=== PATIENT | female | born 1990 | race Caucasian/White ===

== ENCOUNTER 2017-02-14 22:04 | Emergency (ER) | payer OTHER ==
[~2017-02-14] VITALS: Ht 170.2 cm; Wt 105.5 kg
[~2017-02-14 22:04] MED LIST: FEXO1TAB45 PO; FLUO10CA48 PO; FLUT0.0529 INH; LORA-741 PO; MTR600X PO; OXYC-57 PO
[2017-02-14 22:09] VITALS: TEMP 36.8; Ht 170.2 cm; Wt 105.5 kg
--- NOTE | 2017-02-14 22:20 | EMERGENCY ROOM VISIT NOTE ---
ED Visit Note First contact with patient: 22:13 CHIEF COMPLAINT: knee pain HISTORY OF PRESENT ILLNESS: This 26-year-old female patient presents to the emergency department ambulatory complaining of pain in the left knee. The patient states that over the past few days, her left knee has "popped out" twice. She states that she has had a sharp pain in left knee and difficulty moving the knee. She does report a history of sciatica with radiation into the left leg but states this feels different. She denies any trauma to the knee. She denies previous issues with the left knee. She denies any numbness or weakness. She rates her discomfort an 8/10. REVIEW OF SYSTEMS: A 6 system review of systems was completed with positives and pertinent negatives listed in the HPI. ALLERGIES: No known drug allergies MEDICATIONS: See med list PMH: No concerning past medical history. SOCIAL HISTORY: The patient lives locally with family. PHYSICAL EXAM: Vital Signs: Reviewed Nurse's notes, vital signs stable. GENERAL : This is 26-year-old female, no acute distress, but appears in pain, well- developed, well-nourished. MENTAL STATUS: Alert, oriented to person place and time, and cooperative. MUSCULOSKELETAL: The left knee is not swollen. There is no ecchymosis. There is no joint effusion present. The patient is tender diffusely over the left knee. There is no joint line tenderness. The patella does not subluxate. Full flexion, decreased extension due to discomfort. Strength of the quads and hamstrings is 5/5. Joe's is negative. Miguel's and Anterior Drawer tests are negative. There is no laxity with varus and valgus stressing. The foot and toes are warm and well-perfused. Dorsalis pedis pulse 2+. Sensation to pain and light touch is intact. Capillary refill less than 2 seconds. RADIOGRAPHIC FINDINGS: LEFT KNEE 3 VIEWS CLINICAL HISTORY: Left knee pain and popping. COMPARISON: None FINDINGS: Alignment of the left knee is anatomic. No fracture or osseous lesion is identified. There is no evidence for a joint effusion although evaluation is slightly suboptimal given flexion of the left knee. Joint spaces are preserved. IMPRESSION: No abnormality of the left knee. EMERGENCY DEPARTMENT COURSE: I examined the patient. X-rays of the left knee were reviewed by myself and read by radiology and reveal no acute findings. The patient was placed in an Nicolas wrap under my direction and the position was satisfactory. The patient was instructed on the use of crutches. She was given an orthopedic referral. She verbalized understanding of my assessment and treatment plan. The patient was discharged home in good condition. DIAGNOSIS: Left knee pain Problem List Medical Problems: (1) HPV (human papilloma virus) infection Status: Resolved (2) Hyperlipidemia Status: Chronic Current/Historical Medications Scheduled Aripiprazole (Abilify), 5 MG PO DAILY Gabapentin (Neurontin), 600 MG PO TID Sertraline (Zoloft), 25 MG PO DAILY Trazodone Hcl (Trazodone), 50 MG PO HS Allergies Coded Allergies: No Known Allergies (Unverified , 05/21/14) Vital Signs Date Time Temp Pulse Resp B/P (MAP) Pulse Ox O2 Delivery O2 Flow Rate FiO2 02/14/17 22:09 36.8 74 18 134/82 98 Room Air Departure Information Impression Primary Impression: Left knee pain Dispostion Home / Self-Care Condition GOOD Referrals Eduin Prasad, DO Patient Instructions My [facility] Additional Instructions You have been treated in the Emergency Department for Knee Pain. For pain control, you can use the following [id number] medicines (if >12 yo): - Regular strength (325mg/tab) Tylenol (acetaminophen) 2 tabs every 4-6 hours as needed. Do not exceed 12 tablets in a 24 hour period. Avoid taking more than 4 grams (4000 mg) of Tylenol per day. This includes any other sources of acetaminophen you may take on a regular basis. - Regular strength (200 mg/tab) Advil (ibuprofen) 1-2 tabs every 4-6 hours as needed. Do not exceed a dose of 3200 mg per day. If this is a recent injury (<24 hrs), ice can be applied to the area of pain for the first 3 days to help decrease pain and inflammation. Ice massages can be performed by freezing water in a paper cup, peeling back the cup to expose the ice and then massaging over the affected area. You have been provided the number for an Orthopaedic Surgeon. You should call this number as soon as possible to establish a follow-up visit from today's Emergency Department visit. Wear the nicolas wrap and use the crutches you have been provided to keep ALL weight off of the knee until weight bearing is tolerable. Return to the Emergency Department if your current symptoms worsen despite treatment course outlined above. Problem Qualifiers Primary Impression: Left knee pain Chronicity: acute Qualified Codes: M25.562 - Pain in left knee
[2017-02-14] MEDS ORDERED: GABA-113 PO (22:46)
[2017-02-14] MEDS ORDERED: ABL/5 PO (22:47)
[2017-02-14] MEDS ORDERED: TRAZ50TA35 PO (22:48)
--- NOTE | 2017-02-14 22:48 | DIAGNOSTIC IMAGING REPORT ---
LEFT KNEE 3 VIEWS CLINICAL HISTORY: Left knee pain and popping. COMPARISON: None FINDINGS: Alignment of the left knee is anatomic. No fracture or osseous lesion is identified. There is no evidence for a joint effusion although evaluation is slightly suboptimal given flexion of the left knee. Joint spaces are preserved. IMPRESSION: No abnormality of the left knee. Electronically signed by: Constantino Ramos M.D. 02/14/2017 10:47 PM Dictated Date/Time: 02/14/2017 10:46 PM
[2017-02-14] MEDS ORDERED: SERT25TA PO (22:49)
[2017-02-14 23:17] VITALS: BP 128/78; PULSE 76; O2SAT 98
[2017-07-13] MEDS ORDERED: BUPR75TA20 PO (10:37)
[2017-07-13] MEDS ORDERED: TRAM-10 PO (15:01)
== END 2017-02-14 23:19 | disposition home or self-care (01) ==
LOC: C.EDB 22:05 → C.EDC 23:19
DX: M25.562 Pain in left knee (principal); Z86.19 Personal history of other infectious and parasitic diseases

== ENCOUNTER 2017-02-26 22:58 | Emergency (ER) | payer OTHER ==
[~2017-02-26] VITALS: Ht 160 cm; Wt 108.8 kg
[~2017-02-26 22:58] MED LIST changes: +ABL/5 PO; -FEXO1TAB45 PO; -FLUO10CA48 PO; -FLUT0.0529 INH; +GABA-113 PO; -LORA-741 PO; -MTR600X PO; -OXYC-57 PO; +SERT25TA PO; +TRAZ50TA35 PO
[2017-02-26 23:06] VITALS: TEMP 37.2; Ht 160 cm; Wt 108.8 kg
[2017-02-26] MEDS ORDERED: MoRPHine SULFATE 10 MG/ML CARP/VIAL IV STA (23:42)
[2017-02-27] MEDS ORDERED: ONDANSETRON INJ 2 MG/ML 2 ML VIAL IV STA (00:14)
[2017-02-27] MEDS ORDERED: ONDANSETRON INJ 2 MG/ML 2 ML VIAL ONE (00:15)
[2017-02-27] MEDS ORDERED: OPTIRAY 320 IV PRN (00:15)
[2017-02-27] MEDS ORDERED: HYDROmorphone INJ 2 MG/ML SYR/VIAL IV STA (00:24)
[2017-02-27 00:29] LABS: HEMATOCRIT 39.8 % (37-47); MEAN CELL VOLUME 90.9 fL (80-100); MEAN CORPUSCULAR HEMOGLOBIN 30.6 pg (25-34); MEAN CORPUSCULAR HGB CONC 33.7 g/dl (32-36); MEAN PLATELET VOLUME 9.8 fL (7.4-10.4); PLATELET COUNT 284 K/uL (130-400); RED BLOOD COUNT 4.38 M/uL (4.2-5.4); WHITE BLOOD COUNT 9.73 K/uL (4.8-10.8)
[2017-02-27 00:51] LABS: BUN/CREATININE RATIO 14.7 (10-20); CALCIUM 9.4 mg/dl (8.5-10.1); CREATININE 1.1 mg/dl (0.60-1.20); POTASSIUM 3.4 mmol/L (3.5-5.1)
[2017-02-27 01:07] LABS: PREG INTERNAL NEGATIVE QC NEG CLEAR BACKGROUND; PREG INTERNAL POSITIVE QC POS CONTROL LINE
[2017-02-27] MEDS ORDERED: PROCHLORPERAZINE 5 MG/ML 2 ML VIAL IV STA (01:33)
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
[2017-02-27 02:45] VITALS: BP 113/66; PULSE 98; O2SAT 93
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
[2017-07-13] MEDS ORDERED: BUPR75TA20 PO (10:37)
[2017-07-13] MEDS ORDERED: TRAM-10 PO (15:01)
== END 2017-02-27 02:46 | disposition home or self-care (01) ==
LOC: EDBD 22:58 → C.EDC 23:01 → C.EDB 02-27 02:46
DX: T14.8 Other injury of unspecified body region (principal); V43.62XA Car passenger injured in collision with other type car in traffic accident, initial encounter; M25.552 Pain in left hip; M54.5 Low back pain; M54.2 Cervicalgia; R51 Headache; E78.5 Hyperlipidemia, unspecified; Z86.19 Personal history of other infectious and parasitic diseases

== ENCOUNTER 2017-05-23 12:57 | Emergency (ER) | payer OTHER ==
[~2017-05-23] VITALS: Ht 170.2 cm; Wt 108.4 kg
[2017-05-23 13:02] VITALS: TEMP 36.6; Ht 170.2 cm; Wt 108.4 kg
[2017-05-23 13:24] VITALS: O2SAT 100
[2017-05-23] MEDS ORDERED: METHYLPREDNISOLONE 125 MG VIAL IV STA (13:31)
[2017-05-23] MEDS ORDERED: ONDANSETRON INJ 2 MG/ML 2 ML VIAL IV STA (13:31)
[2017-05-23] MEDS ORDERED: ALBUT/IPRATROP 3MG/0.5MG NEB 3 ML VIAL INH ONE (13:45)
[2017-05-23] MEDS ORDERED: SODIUM CHLORIDE 0.9% 1000ML 1,000 ML IV ONE (13:45)
--- NOTE | 2017-05-23 14:11 | DIAGNOSTIC IMAGING REPORT ---
CHEST 2 VIEWS ROUTINE CLINICAL HISTORY: Cough. Fever. COMPARISON STUDY: 02/27/2017 FINDINGS: The cardiac and mediastinal contours are normal. There is no evidence of focal pulmonary consolidation. There is no evidence of failure. No pleural effusions are visualized.[ IMPRESSION: No active disease in the chest. Electronically signed by: Josue Abebe M.D. 05/23/2017 2:10 PM Dictated Date/Time: 05/23/2017 2:09 PM
[2017-05-23 14:46] LABS: BASO % 0.2 %; BASO ABS # 0.02 K/uL (0-0.2); COMPLETE YES; EOS % 1.5 %; HEMATOCRIT 40.7 % (37-47); IG% 0.4 %; LYMPH % 16.4 %; LYMPH ABS # 1.49 K/uL (1.2-3.4); MEAN CELL VOLUME 89.1 fL (80-100); MEAN CORPUSCULAR HEMOGLOBIN 30.4 pg (25-34); MEAN CORPUSCULAR HGB CONC 34.2 g/dl (32-36); MEAN PLATELET VOLUME 10.4 fL (7.4-10.4); MONO % 6.3 %; NEUT % 75.2 %; PLATELET COUNT 279 K/uL (130-400); RED BLOOD COUNT 4.57 M/uL (4.2-5.4); WHITE BLOOD COUNT 9.09 K/uL (4.8-10.8)
[2017-05-23 15:03] LABS: ALB/GLOB RATIO 0.9 (0.9-2); ALKALINE PHOSPHATASE 85 U/L (45-117); ALT/SGPT 34 U/L (12-78); BLOOD UREA NITROGEN 10 mg/dl (7-18); BUN/CREATININE RATIO 12.6 (10-20); CALCIUM 9.1 mg/dl (8.5-10.1); CARBON DIOXIDE 22 mmol/L (21-32); CHLORIDE 106 mmol/L (98-107); CREATININE 0.79 mg/dl (0.60-1.20); GLUCOSE 89 mg/dl (70-99); SODIUM 139 mmol/L (136-145)
[2017-05-23] MEDS ORDERED: METH4PAK PO (15:17)
[2017-05-23 15:55] VITALS: BP 109/61; PULSE 88; O2SAT 97
--- NOTE | 2017-05-23 15:58 | EMERGENCY ROOM VISIT NOTE ---
History First contact with patient: 13:25 Chief Complaint: CHEST PAIN Stated Complaint: CHEST PAIN, TROUBLE BREATHING Nursing Triage Summary: patient with coughing yesterday and chest congestion before that. Chest tightness and pain started for 5 days ago also. coughing up brown mucus. Patient reports history of bronchitis. History of Present Illness The patient is a 26 year old female who presents to the Emergency Room with complaints of cough and chest congestion for the past 4 or 5 days. The patient has a history of bronchitis, and states this feels similar to previous episodes. She has not had a fever and has not taken anything [id number] for her symptoms. The patient recently moved to the area and has yet to establish with a primary care physician. She states that she got her insurance information today and is starting process tomorrow. The patient has not had significant fever or chest pain. No abdominal pain and she is not diabetic and rates her overall discomfort a 5/10. Review of Systems More than 10 systems were reviewed and otherwise negative with the exception of history of present illness. Past Medical/Surgical History Medical Problems: (1) HPV (human papilloma virus) infection (2) Hyperlipidemia (3) nonreassuring testing Family History FH: diabetes mellitus FH: heart failure FH: thyroid condition Social History Smoking Status: Current Every Day Smoker Alcohol Use: none Drug Use: none Marital Status: single Housing Status: lives with family Occupation Status: employed Current/Historical Medications Scheduled Gabapentin (Neurontin), 600 MG PO TID Methylprednisolone (Medrol Dosepak), 1 PKT PO DAILY Physical Exam Vital Signs Date Time Temp Pulse Resp B/P (MAP) Pulse Ox O2 Delivery O2 Flow Rate FiO2 05/23/17 13:30 100 Room Air 05/23/17 13:24 100 Room Air 05/23/17 13:19 69 05/23/17 13:02 36.6 100 22 130/80 97 Room Air Physical Exam VITALS: Vitals are noted on the nurse's note and reviewed by myself. Vital signs stable. GENERAL: Well-developed, well-nourished, white female, who is in no acute distress and resting comfortably. Patient is cooperative with the examination. EARS: External ear normal. External auditory canals clear, tympanic membranes pearly mendoza without erythema or effusion bilaterally. EYES: Pupils equal round and reactive to light and accommodation. Conjunctivae without injection, sclerae without icterus. Extraocular movements intact. NOSE: Patent, turbinates without inflammation or discharge. MOUTH: Mucous membranes moist. Tonsils are not enlarged. Pharynx without erythema, blood, or exudate. Uvula midline. Airway patent. NECK: Supple without nuchal rigidity. No lymphadenopathy. No thyromegaly. Cervical spine is nontender. HEART: Regular rate and rhythm without murmurs gallops or rubs. LUNGS: Coarse breath sounds with scattered rhonchi Medical Decision & Procedures ER Provider Diagnostic Interpretation: CHEST 2 VIEWS ROUTINE CLINICAL HISTORY: Cough. Fever. COMPARISON STUDY: 02/27/2017 FINDINGS: The cardiac and mediastinal contours are normal. There is no evidence of focal pulmonary consolidation. There is no evidence of failure. No pleural effusions are visualized.[ IMPRESSION: No active disease in the chest. Laboratory Results 05/23/17 13:31 Red Blood Count 4.57, Mean Corpuscular Volume 89.1, Mean Corpuscular Hemoglobin 30.4, Mean Corpuscular Hemoglobin Concent 34.2, Mean Platelet Volume 10.4, Neutrophils (%) (Auto) 75.2, Lymphocytes (%) (Auto) 16.4, Monocytes (%) (Auto) 6.3, Eosinophils (%) (Auto) 1.5, Basophils (%) (Auto) 0.2, Neutrophils # (Auto) 6.83, Lymphocytes # (Auto) 1.49, Monocytes # (Auto) 0.57, Eosinophils # (Auto) 0.14, Basophils # (Auto) 0.02 05/23/17 13:31 Test 05/23/17 13:31 05/23/17 13:36 White Blood Count 9.09 K/uL (4.8-10.8) Red Blood Count 4.57 M/uL (4.2-5.4) Hemoglobin 13.9 g/dL (12.0-16.0) Hematocrit 40.7 % (37-47) Mean Corpuscular Volume 89.1 fL (80-100) Mean Corpuscular Hemoglobin 30.4 pg (25-34) Mean Corpuscular Hemoglobin Concent 34.2 g/dl (32-36) Platelet Count 279 K/uL (130-400) Mean Platelet Volume 10.4 fL (7.4-10.4) Neutrophils (%) (Auto) 75.2 % Lymphocytes (%) (Auto) 16.4 % Monocytes (%) (Auto) 6.3 % Eosinophils (%) (Auto) 1.5 % Basophils (%) (Auto) 0.2 % Neutrophils # (Auto) 6.83 K/uL (1.4-6.5) Lymphocytes # (Auto) 1.49 K/uL (1.2-3.4) Monocytes # (Auto) 0.57 K/uL (0.11-0.59) Eosinophils # (Auto) 0.14 K/uL (0-0.5) Basophils # (Auto) 0.02 K/uL (0-0.2) RDW Standard Deviation 38.1 fL (36.4-46.3) RDW Coefficient of Variation 11.8 % (11.5-14.5) Immature Granulocyte % (Auto) 0.4 % Immature Granulocyte # (Auto) 0.04 K/uL (0.00-0.02) Anion Gap 11.0 mmol/L (3-11) Est Creatinine Clear Calc Drug Dose 135.6 ml/min Estimated GFR () 118.9 Estimated GFR (Non- 102.6 BUN/Creatinine Ratio 12.6 (10-20) Calcium Level 9.1 mg/dl (8.5-10.1) Total Bilirubin 0.5 mg/dl (0.2-1) Aspartate Amino Transf (AST/SGOT) U/L (15-37) Alanine Aminotransferase (ALT/SGPT) 34 U/L (12-78) Alkaline Phosphatase 85 U/L (45-117) Total Protein 8.0 gm/dl (6.4-8.2) Albumin 3.8 gm/dl (3.4-5.0) Globulin 4.2 gm/dl (2.5-4.0) Albumin/Globulin Ratio 0.9 (0.9-2) Bedside Troponin I < 0.030 ng/ml (0-0.045) Medications Administered Medications (Trade) Dose Ordered Sig/Burak Route Start Time Stop Time Status Last Admin Dose Admin Sodium Chloride 1,000 ml @ 999 mls/hr Q1H1M ONCE IV 05/23/17 13:45 05/23/17 14:45 DC 05/23/17 13:53 999 MLS/HR Methylprednisolone Sodium Succinate (Solu-Medrol IV) 125 mg NOW STAT IV 05/23/17 13:31 05/23/17 13:33 DC 05/23/17 13:40 125 MG Ondansetron HCl (Zofran Inj) 4 mg NOW STAT IV 05/23/17 13:31 05/23/17 13:33 DC 05/23/17 13:40 4 MG Albuterol/ Ipratropium (Duoneb) 3 ml NOW ONCE INH 05/23/17 13:45 05/23/17 13:46 DC 05/23/17 13:40 3 ML ECG Change: Normal sinus rhythm@ 69 bpm Normal ECG When compared with ECG of 21-AUG-2013 17:40, No significant change was found Confirmed by NELY RAHMAN ([id number]) on 05/23/2017 2:55:15 PM ED Course Physical exam and history were performed. Nursing notes, EMR, and Medication List were personally reviewed. Patient appears to have coughing and chest tightness for the past several days. She does have rhonchi on examination. EKG was performed and is as above without acute ST elevation or evidence of ischemia. Chest x-ray was performed. IV access was established and labs were obtained. The patient was hydrated and medicated as above. She was given a DuoNeb treatment. The patient does not have a significantly elevated white blood cell count or gross anemia, bandemia, or significant electrolyte imbalance. Chest x-ray does not show evidence of acute process. Reevaluation the patient lungs were much more clear and she felt much better. Clinically I suspect her symptoms are related to acute bronchitis. I discussed options of care with the patient, and evaluation does have inhalers at home. I will give her a Medrol Dosepak and asked her to establish and follow with primary care physician for further care and management. She was otherwise invited back to the ER with any new, worsening, or concerning symptoms. The chart was completed utilizing [employer] Speech Voice Recognition Software. Grammatical errors, random word insertions, pronoun errors, and incomplete sentences are an occasional consequence of this system due to software limitations, ambient noise, and hardware issues. Any formal questions or concerns about the content, text, or information contained within the body of this dictation should be directly addressed to the provider for clarification. . Medical Decision Differential diagnosis: Etiologies such as infections, reactive airway disease, pneumonia, pneumothorax , COPD, CHF, cardiac ischemia, pulmonary embolism, musculoskeletal, gastrointestinal, as well as others were entertained. Medication Reconcilliation Current Medication List: was personally reviewed by me Blood Pressure Screening Patient's blood pressure: Normal blood pressure Impression Primary Impression: Acute bronchitis Departure Information Dispostion Home / Self-Care Condition GOOD Prescriptions Methylprednisolone (MEDROL DOSEPAK) 4 Mg Jordan 1 PKT PO DAILY, #1 PKT Prov: Mitchell Anders PA-C 05/23/17 Forms HOME CARE DOCUMENTATION FORM, IMPORTANT VISIT INFORMATION Patient Instructions My [facility] Additional Instructions You were seen and evaluated today on an emergency basis only. This is not a substitute for, or an effort to provide, complete comprehensive medical care. It is not possible to recognize and treat all injuries or illnesses in a single emergency department visit. For this reason it is recommended that you followup with your primary care physician as soon as possible for a recheck of your condition. Take a Medrol Dosepak as prescribed. You are welcome to return to the emergency department anytime with new, worsening, or concerning symptoms.
== END 2017-05-23 15:55 | disposition home or self-care (01) ==
LOC: C.EDB 12:58 → C.EDC 15:55
DX: J20.9 Acute bronchitis, unspecified (principal); R07.9 Chest pain, unspecified; R06.00 Dyspnea, unspecified; F17.210 Nicotine dependence, cigarettes, uncomplicated

== ENCOUNTER 2017-06-27 17:29 | Emergency (ER) | payer OTHER ==
[~2017-06-27] VITALS: Ht 170.2 cm; Wt 104.5 kg
[~2017-06-27 17:29] MED LIST changes: -ABL/5 PO; -SERT25TA PO; -TRAZ50TA35 PO
[2017-06-27 17:49] VITALS: TEMP 36.7; Ht 170.2 cm; Wt 104.5 kg
[2017-06-27] MEDS ORDERED: HYDROmorphone INJ 1 MG/ML SYR IM STA (18:03)
[2017-06-27] MEDS ORDERED: KETOROLAC TROMETHAMINE 60 MG/2 ML VIAL IM STA (18:03)
--- NOTE | 2017-06-27 18:31 | DIAGNOSTIC IMAGING REPORT ---
SINGLE VIEW PELVIS; 2 VIEWS LEFT HIP CLINICAL HISTORY: Fall with left hip pain. FINDINGS: 2 AP pelvic radiographs with AP and frog-leg views of the left hip are obtained. No prior studies are available for comparison at the time of dictation. The skeletal structures are well mineralized. No fracture is seen involving the hips or bony pelvis. The joint spaces of the hips are preserved. The sacroiliac joints are normal. Small phleboliths are observed in the pelvis. The overlying soft tissues are normal in appearance. There is a nonobstructed abdominal bowel gas pattern. IMPRESSION: There is no radiographic evidence of fracture involving the hips or bony pelvis. Electronically signed by: Arnoldo Maurer M.D. 06/27/2017 6:29 PM Dictated Date/Time: 06/27/2017 6:28 PM
[2017-06-27] MEDS ORDERED: ABL/5 PO (18:39)
[2017-06-27] MEDS ORDERED: TRAZ50TA35 PO (18:40)
[2017-06-27] MEDS ORDERED: NAPR-1169 PO (18:44)
[2017-06-27 19:10] VITALS: BP 105/76; PULSE 80; O2SAT 97
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
[2017-07-13] MEDS ORDERED: BUPR75TA20 PO (10:37)
[2017-07-13] MEDS ORDERED: TRAM-10 PO (15:01)
== END 2017-06-27 19:05 | disposition home or self-care (01) ==
LOC: C.EDB 17:30 → C.EDD 19:05
DX: M25.552 Pain in left hip (principal); M54.32 Sciatica, left side; W19.XXXA Unspecified fall, initial encounter; Y92.9 Unspecified place or not applicable; Y93.41 Activity, dancing; G89.29 Other chronic pain; E78.5 Hyperlipidemia, unspecified; Z83.3 Family history of diabetes mellitus; Z82.49 Family history of ischemic heart disease and other diseases of the circulatory system; F17.210 Nicotine dependence, cigarettes, uncomplicated; Z79.899 Other long term (current) drug therapy

== ENCOUNTER 2017-07-21 15:18 | Emergency (ER) | payer OTHER ==
[~2017-07-21] VITALS: Ht 165.7 cm; Wt 108.7 kg
[~2017-07-21 15:18] MED LIST changes: +ABL/5 PO; +BUPR75TA20 PO; +TRAM-10 PO; +TRAZ50TA35 PO
[2017-07-21 15:26] VITALS: TEMP 36.8; Ht 165.7 cm; Wt 108.7 kg
[2017-07-21] MEDS ORDERED: SODIUM CHLORIDE 0.9% 1000ML 1,000 ML IV STA (16:31)
[2017-07-21] MEDS ORDERED: PROCHLORPERAZINE 5 MG/ML 2 ML VIAL IV STA (16:31)
[2017-07-21] MEDS ORDERED: KETOROLAC TROMETHAMINE 30 MG/ML VIAL IV STA (16:31)
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
[2017-07-21 19:19] VITALS: BP 120/84; PULSE 77; O2SAT 100
[2017-07-21 19:25] LABS: URINE APPEARANCE CLEAR (CLEAR); URINE BILIRUBIN NEG (NEG); URINE COLOR YELLOW; URINE NITRITE NEG (NEG); URINE SPECIFIC GRAVITY 1.027 (1.000-1.030); UROBILINOGEN NEG (NEG); ZZUR CULT IF INDIC CLEAN CATCH NO
[2017-07-21 19:29] LABS: MANUAL MICROSCOPIC REQUIRED? NO; REVIEW REQ? NO
== END 2017-07-21 19:24 | disposition home or self-care (01) ==
LOC: C.EDB 15:21 → C.EDC 19:24
DX: G43.109 Migraine with aura, not intractable, without status migrainosus (principal); F17.200 Nicotine dependence, unspecified, uncomplicated; Z91.81 History of falling; Z87.440 Personal history of urinary (tract) infections; Z87.442 Personal history of urinary calculi; Z98.51 Tubal ligation status; Z98.818 Other dental procedure status; Z98.890 Other specified postprocedural states; Z83.3 Family history of diabetes mellitus; Z82.49 Family history of ischemic heart disease and other diseases of the circulatory system

== ENCOUNTER 2017-12-09 08:41 | Emergency (ER) | payer OTHER ==
[~2017-12-09] VITALS: Ht 170.2 cm; Wt 104.7 kg
[~2017-12-09 08:41] MED LIST changes: -ABL/5 PO; -TRAZ50TA35 PO
[2017-12-09 08:44] VITALS: TEMP 36.5; Ht 170.2 cm; Wt 104.7 kg
[2017-12-09] MEDS ORDERED: MBC75 PO (08:59)
[2017-12-09] MEDS ORDERED: RANI300T2 PO (08:59)
[2017-12-09] MEDS ORDERED: CYCL10TA6 PO (08:59)
[2017-12-09] MEDS ORDERED: BUSP-8 PO (08:59)
[2017-12-09] MEDS ORDERED: BUPR100T8 PO (08:59)
[2017-12-09] MEDS ORDERED: TOPI25TA99 PO (08:59)
[2017-12-09] MEDS ORDERED: LYR75 PO (09:53)
[2017-12-09 10:14] VITALS: BP 110/85; PULSE 88; O2SAT 100
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
[2017-12-09] MEDS ORDERED: ABL/5 PO (18:39)
[2017-12-09] MEDS ORDERED: TRAZ50TA35 PO (18:40)
== END 2017-12-09 10:15 | disposition home or self-care (01) ==
LOC: C.EDB 08:43
DX: M54.40 Lumbago with sciatica, unspecified side (principal); E78.5 Hyperlipidemia, unspecified; Z83.3 Family history of diabetes mellitus; Z87.891 Personal history of nicotine dependence

== ENCOUNTER 2018-04-12 14:25 | Emergency (ER) | payer OTHER ==
[~2018-04-12] VITALS: Ht 167.6 cm; Wt 100.8 kg
[~2018-04-12 14:25] MED LIST changes: +BUPR100T8 PO; -BUPR75TA20 PO; +BUSP-8 PO; +CYCL10TA6 PO; -GABA-113 PO; +MBC75 PO; +RANI300T2 PO; +TOPI25TA99 PO; -TRAM-10 PO; +VNTHFA/IN INH
[2018-04-12 14:41] VITALS: TEMP 36.9; Ht 167.6 cm; Wt 100.8 kg
[2018-04-12] MEDS ORDERED: SODIUM CHLORIDE 0.9% 1000ML 1,000 ML IV STA (15:01)
[2018-04-12] MEDS ORDERED: ONDANSETRON INJ 2 MG/ML 2 ML VIAL IV STA (15:03)
[2018-04-12 15:30] LABS: BASO % 0.1 %; BASO ABS # 0.01 K/uL (0-0.2); EOS % 1.7 %; EOS ABS # 0.16 K/uL (0-0.5); HEMATOCRIT 40.5 % (37-47); HEMOGLOBIN 13.8 g/dL (12.0-16.0); IG# 0.03 K/uL (0.00-0.02); LYMPH % 18.3 %; LYMPH ABS # 1.74 K/uL (1.2-3.4); MEAN CORPUSCULAR HEMOGLOBIN 30.7 pg (25-34); MEAN CORPUSCULAR HGB CONC 34.1 g/dl (32-36); MEAN PLATELET VOLUME 10.1 fL (7.4-10.4); MONO % 8.4 %; NEUT % 71.2 %; NEUT ABS # 6.78 K/uL (1.4-6.5); PLATELET COUNT 260 K/uL (130-400); RED CELL DISTRIBUTION WIDTH CV 12.4 % (11.5-14.5); RED CELL DISTRIBUTION WIDTH SD 40.4 fL (36.4-46.3); WHITE BLOOD COUNT 9.52 K/uL (4.8-10.8)
[2018-04-12] MEDS ORDERED: VNTHFA/IN INH (15:43)
[2018-04-12] MEDS ORDERED: TOPI50TA24 PO (15:43)
[2018-04-12 16:07] LABS: ALBUMIN 4.1 gm/dl (3.4-5.0); CALCIUM 8.4 mg/dl (8.5-10.1); POTASSIUM 3.4 mmol/L (3.5-5.1); TOTAL PROTEIN 7.5 gm/dl (6.4-8.2)
--- NOTE | 2018-04-12 16:37 | DIAGNOSTIC IMAGING REPORT ---
TRANSVAG-FEMALE PELVIS HISTORY: Pain. Bleeding. 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 This is improved from the prior exam Right ovary: 2.6 cm maximum dimension with normal vascular flow Left ovary: 6 cm maximum dimension including a complex and/or hemorrhagic 3 cm left ovarian cyst. Normal vascular flow. Miscellaneous:No pelvic free fluid. IMPRESSION: 3 cm complex and a hemorrhagic cyst left ovary. Otherwise negative pelvic ultrasound. The above report was generated using voice recognition software. It may contain grammatical, syntax or spelling errors. Electronically signed by: Kevin Kong M.D. 04/12/2018 4:35 PM Dictated Date/Time: 04/12/2018 4:34 PM
[2018-04-12] MEDS ORDERED: OXYC-737 PO (16:56)
[2018-04-12] MEDS ORDERED: ONDA4TAB10 SL (16:56)
[2018-04-12 17:18] VITALS: BP 117/67; PULSE 71; O2SAT 100
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
[2018-04-12] MEDS ORDERED: ABL/5 PO (18:39)
[2018-04-12] MEDS ORDERED: TRAZ50TA35 PO (18:40)
[2018-04-12] MEDS ORDERED: PREG1CAP28 PO (19:44)
== END 2018-04-12 17:21 | disposition home or self-care (01) ==
LOC: C.EDB 15:20
DX: N83.202 Unspecified ovarian cyst, left side (principal); F31.9 Bipolar disorder, unspecified; E78.5 Hyperlipidemia, unspecified; Z87.891 Personal history of nicotine dependence